=== PATIENT | male | born 1960 | race African-American/Black ===

== ENCOUNTER 2020-07-28 17:12 | Emergency (ER) | payer SELFPAY ==
--- NOTE | 2020-07-28 17:45 | ER Document Report ---
ED Medical Screen (RME) - General Chief Complaint: Chest Pain > 30 Stated Complaint: CHEST PAIN Time Seen by Provider: 07/28/20 17:36 Notes: Patient is a 60-year-old male with a history of diabetes and arthritis who presents emergency department with a chief complaint of chest heaviness and body aches. Patient states that his symptoms started few days ago. Patient reports slight shortness of breath. Patient states that he has not checked his sugar in a while. Patient states that this does not feel like his arthritis. Exam: Sinus rhythm on twelve-lead EKG. Patient is alert and oriented. Based off of the patient's complaints of body aches, the patient will be tested for COVID-19 and chest pain work-up ordered. I have greeted and performed a rapid initial assessment of this patient. A comprehensive ED assessment and evaluation of the patient, analysis of test results and completion of medical decision making process will be conducted by an additional ED providers. - Related Data Allergies/Adverse Reactions: No Known Allergies Allergy (Verified 07/28/20 17:43) Past Medical History - Social History Chew tobacco use (# tins/day): No Frequency of alcohol use: None Drug Abuse: None
[2020-07-28 19:15] LABS: ABSOLUTE BASOPHILS # (AUTO) 0.1 10^3/uL (0.0-0.2); ABSOLUTE EOSINOPHILS # (AUTO) 0.3 10^3/uL (0.0-0.6); ABSOLUTE LYMPHOCYTES (AUTO) 2.7 10^3/uL (0.5-4.7); ABSOLUTE MONOCYTES (AUTO) 0.5 10^3/uL (0.1-1.4); ABSOLUTE NEUT (AUTO) 3.7 10^3/uL (1.7-8.2); BASOPHILS % (AUTO) 1.1 % (0-2); EOSINOPHILS % (AUTO) 4.8 % (0-6); HEMATOCRIT 43.1 % (37.9-51.0); HEMOGLOBIN 14.7 g/dL (13.5-17.0); MEAN CORPUSCULAR HGB CONC 34.1 g/dL (32.0-36.0); MEAN CORPUSCULAR VOLUME 82 fl (80-97); MONOCYTES % (AUTO) 7.1 % (3-13); PLATELET COUNT 347 10^3/uL (150-450); RED BLOOD COUNT 5.25 10^6/uL (4.35-5.55); RED CELL DISTRIBUTION WIDTH 13.5 % (11.5-14.0); TOTAL CELLS COUNTED % (AUTO) 100 %; WHITE BLOOD COUNT 7.3 10^3/uL (4.0-10.5)
--- NOTE | 2020-07-28 19:20 | RADIOLOGY REPORT (SQ) ---
EXAM DESCRIPTION: CHEST SINGLE VIEW IMAGES COMPLETED DATE/TIME: 07/28/2020 7:09 pm REASON FOR STUDY: chest heaviness COMPARISON: None. EXAM PARAMETERS: NUMBER OF VIEWS: One view. TECHNIQUE: Single frontal radiographic view of the chest acquired. RADIATION DOSE: NA LIMITATIONS: None. FINDINGS: LUNGS AND PLEURA: No opacities, masses or pneumothorax. No pleural effusion. MEDIASTINUM AND HILAR STRUCTURES: No masses. Contour normal. HEART AND VASCULAR STRUCTURES: Heart normal in size. Normal vasculature. BONES: No acute findings. HARDWARE: None in the chest. OTHER: No other significant finding. IMPRESSION: NO ACUTE RADIOGRAPHIC FINDING IN THE CHEST. TECHNICAL DOCUMENTATION: JOB ID: [id number] 2010 [employer]- All Rights Reserved Reading location - IP/workstation name: [email or web address]
[2020-07-28 19:34] LABS: ALKALINE PHOSPHATASE 94 U/L (38-126); ANION GAP 8 (5-19); ASPARTATE AMINO TRANSFERASE 23 U/L (17-59); BILIRUBIN,DIRECT 0.3 mg/dL (0.0-0.4); BILIRUBIN,TOTAL 0.4 mg/dL (0.2-1.3); BLOOD UREA NITROGEN 13 mg/dL (7-20); CALCIUM 9.2 mg/dL (8.4-10.2); CARBON DIOXIDE 27 mmol/L (22-30); CHLORIDE 102 mmol/L (98-107); CREATINE KINASE 397 U/L (55-170); GLUCOSE 145 mg/dL (75-110); POTASSIUM 4.1 mmol/L (3.6-5.0)
[2020-07-28] MEDS ORDERED: KETOROLAC TROMETHAMINE INJ/PF 30 MG/1 ML SDV IV ONE (20:24)
--- NOTE | 2020-07-28 20:29 | ER Document Report ---
ED Cardiac - General Chief Complaint: Chest Pain > 30 Stated Complaint: CHEST PAIN Time Seen by Provider: 07/28/20 17:36 Notes: CHIEF COMPLAINT: Chest pain and generalized body ache for 3 days HPI: 60-year-old male who is a type II diabetic presenting for evaluation of left chest pain that hurts when he pushes on the chest wall hurts when he takes a deep breath in for 3 days with generalized body ache and slight cough. No shortness of breath. No abdominal pain nausea vomiting. Patient states that he has taken no medications for his symptoms. Patient states that he recently came from [place] was tested for COVID 2 months ago would like to be retested because he is concerned he has COVID. Patient indicates that the discomfort in the chest specifically worsens with palpation of the chest wall or movement ROS: See HPI - all other systems were reviewed and are otherwise negative Constitutional: no fever Eyes: no drainage, no blurred vision ENT: no runny nose, no sore throat Cardiovascular: Positive chest wall pain Resp: no SOB, no cough GI: no vomiting, no diarrhea, no abdominal pain : no dysuria Integumentary: no rash Allergy: no hives Musculoskeletal: Positive body ache Neurological: no numbness/tingling, no weakness MEDICATIONS: I agree with the patient medications as charted by the RN. ALLERGIES: I agree with the allergies as charted by the RN. PAST MEDICAL HISTORY/PAST SURGICAL HISTORY: Reviewed and agree as charted by RN. SOCIAL HISTORY: Reviewed and agree as charted by RN. FAMILY HISTORY: No significant familial comorbid conditions directly related to patient complaint EXAM: Reviewed vital signs as charted by RN. CONSTITUTIONAL: Alert and oriented and responds appropriately to questions. Well-appearing; well-nourished HEAD: Normocephalic; atraumatic EYES: PERRL; Conjunctivae clear, sclerae non-icteric ENT: normal nose; no rhinorrhea; moist mucous membranes; pharynx without lesions noted, no uvula edema or deviation, no tonsillar hypertrophy, phonation normal NECK: Supple without meningismus; non-tender; no cervical lymphadenopathy, no masses CARD: RRR; no murmurs, no clicks, no rubs, no gallops; symmetric distal pulses RESP: Normal chest excursion without splinting or tachypnea; breath sounds clear and equal bilaterally; no wheezes, no rhonchi, no rales, pulse oximetry 98% on room air not hypoxic. There is reproducible pain on palpation of the left anterior chest wall ABD/GI: Normal bowel sounds; non-distended; soft, non-tender, no rebound, no guarding; no palpable organomegaly or masses. BACK: The back appears normal and is non-tender to palpation, there is no CVA tenderness EXT: Normal ROM in all joints; non-tender to palpation; no cyanosis, no effusions, no edema SKIN: Normal color for age and race; warm; dry; good turgor; no acute lesions noted NEURO: Moves all extremities equally; Motor and sensory function intact PSYCH: The patient's mood and manner are appropriate. Grooming and personal hygiene are appropriate. MDM: 60-year-old diabetic male presenting for body ache and chest wall pain requesting COVID testing symptoms have been consistent for 3 days, initial screening labs ordered via triage process negative for acute findings. Patient's pain is completely reproducible to palpation I have lower suspicion for ACS. EKG normal sinus rhythm with a ventricular rate of 89. [place] 136, QT 360, interpreted by emergency department physician. Nonspecific T wave flattening is noted. Will cover test the patient and will be a person under investigation for COVID-19. Self quarantine at home. Will refer patient to PCP and to cardiology for outpatient follow-up - Related Data Allergies/Adverse Reactions: No Known Allergies Allergy (Verified 07/28/20 17:43) Past Medical History - Social History Smoking Status: Current Every Day Smoker Chew tobacco use (# tins/day): No Frequency of alcohol use: None Drug Abuse: None Family History: Reviewed & Not Pertinent Endocrine Medical History: Reports: Hx Diabetes Mellitus Type 2 Renal/ Medical History: Reports: Hx Kidney Stones Physical Exam - Vital signs Vitals: Temp Pulse Resp BP Pulse Ox 98.7 F 99 18 149/98 H 99 07/28/20 17:34 07/28/20 17:34 07/28/20 17:34 07/28/20 17:34 07/28/20 17:34 Course - Vital Signs Vital signs: Temp Pulse Resp BP Pulse Ox 98.7 F 99 18 149/98 H 99 07/28/20 17:34 07/28/20 17:34 07/28/20 17:34 07/28/20 17:34 07/28/20 18:00 - Laboratory Result Diagrams: 07/28/20 18:50 07/28/20 18:50 Laboratory results interpreted by me: 07/28/20 07/28/20 18:11 18:50 Sodium 136.6 L Glucose 145 H POC Glucose 144 H Creatine Kinase 397 H Discharge - Discharge Clinical Impression: Chest wall pain, Person under investigation for COVID-19 Condition: Stable Disposition: HOME, SELF-CARE Additional Instructions: Your screening lab work tonight did not show acute emergent abnormalities. Follow-up closely with both your primary care provider and with cardiology for further evaluation and treatment call for appointment. If you have worsening symptoms return for reevaluation. Take the Voltaren as prescribed. You are considered a person under investigation for COVID-19 at this time self quarantin e at home pending her test results which usually take 2 to 5 days. You should receive a call from the hospital about your results. Prescriptions: Diclofenac Sodium [Voltaren 50 Mg Tablet.] 50 mg PO BID #20 tablet.dr Referrals: TANIKA MCKINNON MD [ACTIVE PROVISIONAL STAFF] - Follow up as needed
[2020-07-28 21:29] VITALS: BP 159/89
--- NOTE | 2020-07-31 02:49 | EKG REPORT ---
SEVERITY:- BORDERLINE ECG - SINUS RHYTHM BORDERLINE T WAVE ABNORMALITIES : Confirmed by: Manuel Sibley MD 31-Jul-2020 02:49:00
== END 2020-07-28 21:15 | disposition home or self-care (01) ==
LOC: ER 17:12
DX: R07.89 Other chest pain (principal); R07.1 Chest pain on breathing; R05 Cough; E11.9 Type 2 diabetes mellitus without complications; F17.200 Nicotine dependence, unspecified, uncomplicated; Z20.828 Contact with and (suspected) exposure to other viral communicable diseases
CPT/HCPCS: 93005; 99284; 96374; 36415; 82962; 82550; 83735; 85025; 87635; 80053; 84484; 71045; 93010; J1885; C9803

== ENCOUNTER 2020-10-28 14:09 | Inpatient (IN) | payer SELFPAY ==
--- NOTE | 2020-10-28 14:45 | ER Document Report ---
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 Patient states that he was unable to hold the steering wheel while driving his car. Patient denies a history of cardiovascular complaints. Notes that his speech feels slurred. Denies drooling. Denies other complaints. - Related Data Allergies/Adverse Reactions: No Known Allergies Allergy (Verified 07/28/20 17:43) Past Medical History Endocrine Medical History: Reports: Hx Diabetes Mellitus Type 2 Renal/ Medical History: Reports: Hx Kidney Stones Physical Exam - Vital signs Vitals: Temp Pulse Resp BP Pulse Ox 98.0 F 86 16 154/92 H 95 10/28/20 14:26 10/28/20 14:26 10/28/20 14:26 10/28/20 14:26 10/28/20 14:26 General: No acute distress. Alert and oriented x3. Sitting comfortably in a stretcher. Skin: No jaundice, pallor, petechiae, or rashes. Warm and dry. HEENT: Normocephalic, atraumatic. Pupils are equal round reactive to light and accommodation. Extraocular movements are intact. TMs without erythema or bulging. Canals are clear. Nares patent without any discharge. Teeth in good condition. Pharynx without erythema, edema, or exudates. Mucous membranes moist. No tonsillar enlargement. Uvula is midline. Airway is patent. Neck: Supple with no lymphadenopathy. Full range of motion. Heart: Regular rate and rhythm. S1,S2. No murmurs, rubs, or gallops. Lungs: Clear to auscultation bilaterally. No wheezes, rhonchi, rales. Equal chest expansion. No retractions. Abdomen: Soft, nontender to palpation, nondistended. Positive bowel sounds in all 4 quadrants. No masses. No CVA tenderness bilaterally. Back: No midline spinal TTP. No paraspinous muscular TTP. Neuro: GCS 15. Positive pronator drift to the right side. Minor facial droop to the right side. Slowed Speech is noted Psych: Mood and affect appropriate. Course - Vital Signs Vital signs: Temp Pulse Resp BP Pulse Ox 98.0 F 86 16 154/92 H 95 10/28/20 14:26 10/28/20 14:26 10/28/20 14:26 10/28/20 14:26 10/28/20 14:26
--- NOTE | 2020-10-28 15:00 | EKG REPORT ---
SEVERITY:- ABNORMAL ECG - SINUS RHYTHM LEFT VENTRICULAR HYPERTROPHY BORDERLINE T ABNORMALITIES, INFERIOR LEADS : Confirmed by: Pb Isabel 28-Oct-2020 14:59:53
--- NOTE | 2020-10-28 15:02 | RADIOLOGY REPORT (SQ) ---
EXAM DESCRIPTION: CT HEAD WITHOUT IMAGES COMPLETED DATE/TIME: 10/28/2020 2:53 pm REASON FOR STUDY: cva COMPARISON: None. TECHNIQUE: Axial images acquired through the brain without intravenous contrast. Images reviewed wi th bone, brain and subdural windows. Additional sagittal and coronal reconstructions were generated. Images stored on PACS. All CT scanners at this facility use dose modulation, iterative reconstruction, and/or weight based d osing when appropriate to reduce radiation dose to as low as reasonably achievable (ALARA). [facility]: Dose Right [facility]: CareDose [facility]: Dose Right [facility]: Teradose 4D [facility]: AVOS Cloud RADIATION DOSE: CT Rad equipment meets quality standard of care and radiation dose reduction techniq ues were employed. CTDIvol: 53.2 mGy. DLP: 937 mGy-cm. mGy. LIMITATIONS: None. FINDINGS: VENTRICLES: Normal size and contour. CEREBRUM: No masses. No hemorrhage. No midline shift. No evidence for acute infarction. Normal gra y/white matter differentiation. No areas of low density in the white matter. CEREBELLUM: No masses. No hemorrhage. No alteration of density. No evidence for acute infarction. EXTRAAXIAL SPACES: No fluid collections. No masses. ORBITS AND GLOBE: No intra- or extraconal masses. Normal contour of globe without masses. CALVARIUM: No fracture. PARANASAL SINUSES: Maxillary sinus disease and mucous retention cysts. SOFT TISSUES: No mass or hematoma. OTHER: No other significant finding. IMPRESSION: NO ACUTE INTRACRANIAL IMAGING FINDINGS. EVIDENCE OF ACUTE STROKE: NO. COMMENT: Quality ID # [id number]: Final reports with documentation of one or more dose reduction techniques (e.g., Automated exposure control, adjustment of the mA and/or kV according to patient size, use of iterative reconstruction technique) TECHNICAL DOCUMENTATION: JOB ID: [id number] 2010 [employer]- All Rights Reserved Reading location - IP/workstation name: [email or web address]
--- NOTE | 2020-10-28 15:03 | RADIOLOGY REPORT (SQ) ---
EXAM DESCRIPTION: CHEST SINGLE VIEW IMAGES COMPLETED DATE/TIME: 10/28/2020 2:55 pm REASON FOR STUDY: cva COMPARISON: Chest radiographs 07/28/2020. EXAM PARAMETERS: NUMBER OF VIEWS: One view. TECHNIQUE: Single frontal radiographic view of the chest acquired. RADIATION DOSE: NA LIMITATIONS: None. FINDINGS: LUNGS AND PLEURA: No opacities, masses or pneumothorax. No pleural effusion. MEDIASTINUM AND HILAR STRUCTURES: No masses. Contour normal. HEART AND VASCULAR STRUCTURES: Heart normal in size. Normal vasculature. BONES: No acute findings. HARDWARE: None in the chest. OTHER: No other significant finding. IMPRESSION: NO ACUTE RADIOGRAPHIC FINDING IN THE CHEST. TECHNICAL DOCUMENTATION: JOB ID: [id number] 2010 [employer]- All Rights Reserved Reading location - IP/workstation name: [email or web address]
[2020-10-28 16:10] LABS: ABSOLUTE BASOPHILS # (AUTO) 0.1 10^3/uL (0.0-0.2); ABSOLUTE EOSINOPHILS # (AUTO) 0.3 10^3/uL (0.0-0.6); ABSOLUTE LYMPHOCYTES (AUTO) 2.9 10^3/uL (0.5-4.7); ABSOLUTE MONOCYTES (AUTO) 0.5 10^3/uL (0.1-1.4); ABSOLUTE NEUT (AUTO) 2.5 10^3/uL (1.7-8.2); BASOPHILS % (AUTO) 0.9 % (0-2); EOSINOPHILS % (AUTO) 5.5 % (0-6); HEMATOCRIT 40.5 % (37.9-51.0); HEMOGLOBIN 13.8 g/dL (13.5-17.0); INTERNATIONAL RATION (INR) 0.96; LYMPHOCYTES % (AUTO) 45.6 % (13-45); MEAN CORPUSCULAR HEMOGLOBIN 27.7 pg (27.0-33.4); MEAN CORPUSCULAR VOLUME 82 fl (80-97); MONOCYTES % (AUTO) 8.8 % (3-13); PLATELET COUNT 313 10^3/uL (150-450); RED BLOOD COUNT 4.97 10^6/uL (4.35-5.55); RED CELL DISTRIBUTION WIDTH 13.3 % (11.5-14.0); SEGMENTED NEUTROPHILS % (AUTO) 39.2 % (42-78); TOTAL CELLS COUNTED % (AUTO) 100 %; WHITE BLOOD COUNT 6.3 10^3/uL (4.0-10.5)
[2020-10-28 16:11] LABS: PARTIAL THROMBOPLASTIN TIME 30.6 SEC (23.5-35.8)
[2020-10-28 16:29] LABS: ALBUMIN 4.1 g/dL (3.5-5.0); ALKALINE PHOSPHATASE 123 U/L (38-126); ANION GAP 9 (5-19); ASPARTATE AMINO TRANSFERASE 27 U/L (17-59); BILIRUBIN,DIRECT 0.1 mg/dL (0.0-0.4); BILIRUBIN,TOTAL 0.8 mg/dL (0.2-1.3); BLOOD UREA NITROGEN 14 mg/dL (7-20); CALCIUM 9.7 mg/dL (8.4-10.2); CARBON DIOXIDE 26 mmol/L (22-30); CHLORIDE 101 mmol/L (98-107); CREATINE KINASE 629 U/L (55-170); GLUCOSE 185 mg/dL (75-110); POTASSIUM 4.2 mmol/L (3.6-5.0); TOTAL PROTEIN 7.3 g/dL (6.3-8.2)
[2020-10-28] MEDS ORDERED: NORMAL SALINE 500 ML IV ONE (16:32)
[2020-10-28 16:38] LABS: CREATINE KINASE MB 3.49 ng/mL (<4.55); TROPONIN I 0.014 ng/mL
--- NOTE | 2020-10-28 16:45 | ER Document Report ---
ED General - General Chief Complaint: S/S of Possible Stroke Stated Complaint: CHEST PRESSURE RIGHT SIDE WEAKNESS Time Seen by Provider: 10/28/20 14:32 - HPI Notes: Patient is a 60-year-old male with a past medical history of high blood pressure and diabetes who presents with stroke like symptoms. Patient states he began to feel off yesterday. He states he had a mild headache and felt some tingling in his arms. Today, he was driving and felt like his right arm was acting differently. He also states that he feels that his right leg is weak. He thinks he has been talking with a slurred speech. Last known well was yesterday around 8 PM. Nothing makes it better or worse. He denies any chest pain or shortness of breath. No recent illnesses. Patient moved here from [place] 3 months ago. He has been living in his car. He does have family in the area. Patient states that he ran out of his medicines 3 days ago and has not taken anything for his blood pressure or diabetes. He is unsure what his blood pressure dose is. Patient does not take any blood thinners. He states he takes a daily aspirin. - Related Data Allergies/Adverse Reactions: No Known Allergies Allergy (Verified 07/28/20 17:43) Past Medical History - General Information source: Patient - Social History Smoking Status: Current Every Day Smoker Chew tobacco use (# tins/day): No Frequency of alcohol use: None Drug Abuse: None Family History: Reviewed & Not Pertinent Endocrine Medical History: Reports: Hx Diabetes Mellitus Type 2 Renal/ Medical History: Reports: Hx Kidney Stones Review of Systems - Review of Systems Notes: CONSTITUTIONAL: No fever, fatigue or weight loss. SKIN: No rash. HENT: No congestion, ear pain, or sore throat. EYES: No recent vision problems or eye pain. CARDIOVASCULAR: No chest pain or edema. RESPIRATORY: No cough, shortness of breath, congestion, or wheezing. GASTROINTESTINAL: No abdominal pain, nausea, vomiting, bloody stools or diarrhea. MUSCULOSKELETAL: No joint pain or swelling. NEUROLOGIC: No seizures. Positive for weakness to his right arm and right leg. Positive for subjective slurred speech. HEMATOLOGIC: No unusual bruising or bleeding. PSYCHIATRIC: No depression or anxiety. Physical Exam - Vital signs Vitals: Temp Pulse Resp BP Pulse Ox 98.0 F 86 16 154/92 H 95 10/28/20 14:26 12/12/20 14:26 10/28/20 14:26 10/28/20 14:26 10/28/20 14:26 - General General appearance: Appears well Notes: GENERAL: No acute distress, non-toxic appearance. HEAD: Normal with no signs of head trauma. EYES: EOMI, conjunctiva normal, no discharge. EARS: Hearing grossly intact. NOSE: Normal. NECK: Normal range of motion, no tenderness, supple, no lymphadenopathy, No adenopathy, no JVD. CHEST: Clear breath sounds bilaterally. No wheezes, rales, or rhonchi. CARDIAC: Regular rate and rhythm. S1 and S2, without murmurs, gallops, or rubs. VASCULAR: No Edema. ABDOMEN: Normal and soft with no tenderness, no masses or pulsatile masses. GENITOURINARY: Normal, No tenderness MUSCULOSKELETAL: Good range of motion of all major joints. Extremities without clubbing, cyanosis or edema. NEUROLOGICAL: Alert and oriented x 3. Sensation is intact bilaterally in upper and lower extremities. Strength is 5 out of 5 bilaterally. There is noted some right pronator drift on his upper extremity. Patient speech appears normal. No aphasia. No slurred speech appreciated. NIH is 1. PSYCHIATRIC: Normal Affect, judgement and mood. SKIN: Normal appearance with no rashes or lesions. Course - Re-evaluation Re-evalutation: 10/28/20 16:48 Patient is using both of his arms normally on the cell phone. However, when I check pronator drift he does have a slight drift on the right upper extremity. CT scan and x-ray are negative. Lab work was reviewed. His CK is slightly high . He was given a small bolus of fluids. Recommend admission for MRI and further work-up. Patient is not a TPA candidate as his symptoms onset was yesterday evening and he has a low NIH. 10/29/20 01:29 - Vital Signs Vital signs: Temp Pulse Resp BP Pulse Ox 98.0 F 92 18 103/89 H 100 10/28/20 14:26 10/28/20 20:05 10/28/20 20:05 10/28/20 20:00 10/28/20 20:05 - Laboratory Results Result Diagrams: 10/28/20 15:37 10/28/20 15:37 Laboratory Results Interpreted: 10/28/20 10/28/20 15:37 15:37 Lymph % (Auto) 45.6 H Seg Neutrophils % 39.2 L Sodium 136.1 L Glucose 185 H Creatine Kinase 629 H Critical Laboratory Results Reviewed: No Critical Results - Radiology Results Critical Radiology Results Reviewed: No Critical Results - EKG Interpretation by Me EKG shows normal: Sinus rhythm Rate: Normal Rhythm: NSR When compared to previous EKG there are: No significant change Additional EKG results interpreted by me: 10/28/20 16:47 Sinus rhythm at a rate of 82. QTc 444. No acute ST changes. EKG is similar to previous. Discharge - Discharge Clinical Impression: Stroke-like symptoms Condition: Stable Disposition: ADMITTED OBSERVATION Admitting Provider: Saroj (Hospitalist) Unit Admitted: [facility]
--- NOTE | 2020-10-28 16:49 | ER Document Report ---
ED NIH Stroke Scale - NIH Stroke Scale When completed:: Protocol *: 1. NIH scale should be completed with appropriate accompanying assessment tools. *: 2. The NIH should reflect what the patient is capable of doing and should not be coached by the clinician. 1a. Level of Consciousness: 0=Alert;keenly responsive -: 1=Drowsy -: 2=Obtunded -: 3=Coma/unresponsive or reflex to noxious stimuli. 1a. Responses: 0 1b. Orientation Questions: a. What month is it? -: b. How old are you? -: 0=Answers both questions correctly. -: 1=Answers one question correctly or patient is intubated or has orotracheal trauma. -: 2=Answers neither question correctly. 1b. Responses: 0 1c. Response to commands: a. Open and close eyes? -: b. Foreclosure Specialist and release hand? -: Credit is given despite weakness. Demonstration of task is permitted. Substitute command if hands cannot be used. -: 0=Performs both tasks correctly -: 1=Performs one task correctly -: 2=Performs neither task correctly 1c. Responses: 0 2. Gaze: Establish eye contact and instruct patient to "Follow my finger" -: 0=Normal -: 1=Partial gaze palsy. Gaze is abnormal in one or both eyes, but where forced deviation or total gaze paresis is not present. -: 2=Forced deviation or total gaze paresis. 2. Responses: 0 3. Visual Parry: Sees fingers in all four quadrants. -: 0=No visual loss. -: 1=Partial hemianopsia. -: 2=Complete hemianopsia. -: 3=Bilateral hemianopsia (including Cortical blindness) 3. Responses: 0 4. Facial Movement: Instruct patient to: -: a. Show me your teeth -: b. Raise your eyebrows -: c. Close your eyes -: d. Smile -: 0=Normal symmetrical movement -: 1=Minor paralysis (flattened nasolabial fold, asymmetry on smiling). -: 2=Partial paralysis (total or near total paralysis of lower face). -: 3=Complete paralysis of upper and lower face 4. Responses: 0 5. Motor functions (left arm): Alternate sides and extend each arm with palms down (90 degrees if sitting or 45 degrees for supine). -: 0=No drift;limb holds for full 10 seconds. -: 1=Drift; limb holds but drifts down before full 10 seconds, but does not hit bed. -: 2=Some effort against gravity; limb cannot get to or maintain position. -: 3=No effort against gravity; limb falls. -: 4=No movement. -: UN=Amputation, joint fusion, explain in comments. 5. Responses (left arm): 0 5. Motor Functions (right arm): Alternate sides and extend each arm with palms down (90 degrees if sitting or 45 degrees for supine). -: 0=No drift;limb holds for full 10 seconds. -: 1=Drift; limb holds but drifts down before full 10 seconds, but does not hit bed. -: 2=Some effort against gravity; limb cannot get to or maintain position. -: 3=No effort against gravity; limb falls. -: 4=No movement. -: UN=Amputation, joint fusion, explain in comments. 5. Responses (right arm): 1 6. Motor Functions (left leg): With patient lying supine, alternate sides and extend each leg (30 degrees always while supine). -: 0=No drift, leg holds position for full 5 seconds -: 1=Drift; leg falls before full 5 seconds but does not hit bed. -: 2=Some effort against gravity, leg falls to bed but some effort against gravity. -: 3=No effort against gravity, leg falls to bed immediately. -: 4=No movement. -: UN=Amputation, joint fusion; explain in comments. 6. Responses (left leg): 0 6. Motor Functions (right leg): With patient lying supine, alternate sides and extend each leg (30 degrees always while supine). -: 0=No drift, leg holds position for full 5 seconds -: 1=Drift; leg falls before full 5 seconds but does not hit bed. -: 2=Some effort against gravity, leg falls to bed but some effort against gravity. -: 3=No effort against gravity, leg falls to bed immediately. -: 4=No movement. -: UN=Amputation, joint fusion; explain in comments. 6. Responses (right leg): 0 7. Limb Ataxia: With eyes open instruct patient to: -: a. "Touch your finger to your nose". -: b. "Touch your heel to your mendez" -: 0=Absent -: 1=Present in one limb. -: 2=Present in two limbs. -: UN=Amputation or joint fusion; explain in comments. 7. Responses: 0 8. Sensory: Test sensation using pinprick or noxious stimuli. Test as many body parts as possible. -: 0=Normal;no sensory loss -: 1=Mile to moderate sensory loss (patient feels pin prick but is less sharp on affected side). -: 2=Severe or total sensory loss. 8. Responses: 0 9. Best Language: Instruct patient to: -: a. "Describe what you see in this picture." -: b. "Name the items in this picture." -: c. "Read these sentences." -: 0=No aphasia, normal -: 1=Mild to moderate aphasia. -: 2=Severe aphasia -: 3=Mute, global aphasia, no usable speech or auditory comprehension. 9. Responses: 0 10. Articulation, Dysarthia: Instruct patient to: -: "Read these words" or "Repeat these words" -: 0=Normal -: 1=Mild to moderate; patient may slur some words but can be understood without difficulty. -: 2=Severe; patients speech so slurred as to be unintelligible in the absence of dysphasia. -: UN=Intubated or other physical barrier, explain in comments. 10. Responses: 0 11. Extinction or inattention: 0=No abnormality -: 1= Visual, tactile, auditory, spatial, or personal inattention or extinction to bilateral simulation in one or the sensory modalities. -: 2=Profound ceci-inattention or ceci-inattention to more than one modality; does not recognize own hand. 11. Responses: 0 Total Score: 1
[2020-10-28] MEDS ORDERED: NORMAL SALINE 1000 ML 1,000 ML IV PRN (17:42)
[2020-10-28] MEDS ORDERED: ONDANSETRON HCL INJ/PF 4 MG/2 ML SDV IV PRN (17:42)
[2020-10-28] MEDS ORDERED: IPRATROPIUM/ALBUTEROL 0.5-2.5 MG/3 ML AMPUL NEB PRN (17:42)
[2020-10-28] MEDS ORDERED: GLUCAGON,HUMAN RECOMB 1 MG INJ IM PRN (18:00)
[2020-10-28] MEDS ORDERED: DEXTROSE 50%-WATER 25 GM/50 ML DISP.SYRIN IV PRN ×2 (18:00)
[2020-10-28] MEDS ORDERED: DEXTROSE 40% GEL 15 GM TUBE PO PRN ×2 (18:00)
[2020-10-28] MEDS: ASPIRIN 81 MG TABLET, ENT COATED PO SCH (18:13)
--- NOTE | 2020-10-28 18:30 | RADIOLOGY REPORT (SQ) ---
EXAM DESCRIPTION: CT CERVICAL SPINE WITHOUT IMAGES COMPLETED DATE/TIME: 10/28/2020 6:18 pm REASON FOR STUDY: neck pain radiating to arms COMPARISON: None. TECHNIQUE: Axial images acquired through the cervical spine without intravenous contrast. Images re viewed with lung, soft tissue and bone windows. Reconstructed coronal and sagittal MPR images review ed. Images stored on PACS. All CT scanners at this facility use dose modulation, iterative reconstruction, and/or weight based d osing when appropriate to reduce radiation dose to as low as reasonably achievable (ALARA). [facility]: Dose Right [facility]: CareDose [facility]: Dose Right [facility]: Teradose 4D [facility]: Smart Causata RADIATION DOSE: CT Rad equipment meets quality standard of care and radiation dose reduction techniq ues were employed. CTDIvol: 20.3 mGy. DLP: 489 mGy-cm. mGy. LIMITATIONS: None. FINDINGS: ALIGNMENT: Anatomic. MINERALIZATION: Normal. VERTEBRAL BODIES: No fractures or dislocation. DISCS: Generally maintained. Mild spondylosis with disc osteophyte complexes C5-6 and C6-7. Noncrit ical foraminal narrowing at these levels. FACETS, LATERAL MASSES, POSTERIOR ELEMENTS: No fractures. No dislocation. No acute findings. HARDWARE: None in the spine. VISUALIZED RIBS: No fractures. LUNG APICES AND SOFT TISSUES: No significant or acute findings. OTHER: No other significant finding. IMPRESSION: Mild spondylosis. No acute or suspicious cervical spine abnormality. TECHNICAL DOCUMENTATION: JOB ID: [id number] Quality ID # [id number]: Final reports with documentation of one or more dose reduction techniques (e.g., Au tomated exposure control, adjustment of the mA and/or kV according to patient size, use of iterative reconstruction technique) 2010 [employer]- All Rights Reserved Reading location - IP/workstation name: [email or web address]
--- NOTE | 2020-10-28 18:33 | PDOC H&P ---
History of Present Illness Admission Date/PCP: 10/28/20 17:25 DELMER CLEMENTS MD Patient complains of: Right arm weakness, slurring of speech. History of Present Illness: RAYA MCKINNON is a 60 year old male, past medical history of prior stroke last year affecting the left side of his body no residual weakness, hypertension, hyperlipidemia, type 2 diabetes, who came in the ED today due to right arm weakness and slurring of speech. His symptoms started last night at around 10 PM when he experience pain on the back of his head that radiated to both arms. When he woke up this morning he said he felt terrible and unsteady on his legs specifically the right side. While he was driving today he noticed that his right arm jerked suddenly and that he was slurring his speech. Patient then decided to come to the ED. According to the patient he has not had any of his medication for 2 days. He also stated that he living in his car since June. In the ED blood pressure was 154/92,, heart rate of 85, respiratory rate 16, afebrile, O2 sat of 95% on room air. BC was normal, CMP was normal. CT head negative. NIH stroke scale was 3.Hospitalist service was called to admit the patient for TIA work up Past Medical History Cardiac Medical History: Reports: Coronary Artery Disease, Hyperlipidema, Hypertension EENT Medical History: Reports: None Neurological Medical History: Reports: Ischemic CVA Endocrine Medical History: Reports: Diabetes Mellitus Type 2 Renal/ Medical History: Reports: Nephrolithiasis Malignancy Medical History: Reports: None GI Medical History: Reports: None Musculoskeltal Medical History: Reports: None, Other - Chronic back pain Skin Medical History: Reports: None Psychiatric Medical History: Reports: Tobacco Dependency Traumatic Medical History: Reports: None Hematology: Reports: None Past Surgical History Past Surgical History: Reports: None Social History Information Source: Patient Smoking Status: Current Every Day Smoker Cigarettes Packs Per Day: 1 Electronic Cigarette use?: No Number of Years Smokin Frequency of Alcohol Use: Rare Hx Recreational Drug Use: No Drugs: None - Advance Directive Resuscitation Status: Full Code Surrogate healthcare decision maker:: Patient stated that he wants to be FULL CODE and named her ex Amy as his HCPOA. He also named frank escobar as the 2nd HCPOA. Family History Family History: DM, Hypertension Parental Family History Reviewed: Yes Children Family History Reviewed: Yes Sibling(s) Family History Reviewed.: Yes Medication/Allergy Home Medications: Diclofenac Sodium [Voltaren 50 Mg Tablet.] 50 mg PO BID #20 tablet. 07/28/20 Allergies/Adverse Reactions: No Known Allergies Allergy (Verified 07/28/20 17:43) Review of Systems Constitutional: PRESENT: fatigue, weakness. ABSENT: chills, fever(s), night sweats Eyes: ABSENT: visual disturbances Ears: ABSENT: hearing changes Nose, Mouth, and Throat: ABSENT: mouth pain, sore throat Cardiovascular: ABSENT: chest pain, dyspnea on exertion, edema, orthropnea, palpitations Respiratory: ABSENT: dyspnea Gastrointestinal: ABSENT: diarrhea, hematemesis Genitourinary: ABSENT: dysuria Musculoskeletal: PRESENT: back pain. ABSENT: joint swelling Neurological: PRESENT: abnormal movements, abnormal speech, focal weakness, frequent falls, paresthesias. ABSENT: confusion, convulsions Physical Exam Vital Signs: Temp Pulse Resp BP Pulse Ox 98.0 F 85 16 166/102 H 98 10/28/20 14:26 10/28/20 15:47 10/28/20 15:47 10/28/20 15:47 10/28/20 15:47 Intake & Output 10/27/20 10/28/20 10/29/20 06:59 06:59 06:59 Weight 94.1 kg General appearance: PRESENT: no acute distress, cooperative Head exam: PRESENT: atraumatic Eye exam: PRESENT: EOMI, PERRLA Ear exam: PRESENT: normal external ear exam Mouth exam: PRESENT: moist Neck exam: PRESENT: full ROM Respiratory exam: PRESENT: clear to auscultation dayday, symmetrical, unlabored Cardiovascular exam: PRESENT: RRR, +S1, +S2 Pulses: PRESENT: +2 pedal pulses bilateral GI/Abdominal exam: PRESENT: normal bowel sounds, soft. ABSENT: rebound, tenderness Extremities exam: PRESENT: full ROM Musculoskeletal exam: PRESENT: full ROM Neurological exam: PRESENT: alert, awake, oriented to person, oriented to place, oriented to time, oriented to situation, reflexes normal, abnormal gait, CN II- XII grossly intact, motor sensory deficit, aphasic - Very mild expressive a phasia Psychiatric exam: PRESENT: normal mood Skin exam: PRESENT: normal color Results Laboratory Results: 10/28/20 15:37 12/12/20 15:37 10/28/20 10/28/20 15:37 15:37 WBC 6.3 RBC 4.97 Hgb 13.8 Hct 40.5 MCV 82 MCH 27.7 MCHC 34.0 RDW 13.3 Plt Count 313 Seg Neutrophils % 39.2 L Sodium 136.1 L Potassium 4.2 Chloride 101 Carbon Dioxide 26 Anion Gap 9 BUN 14 Creatinine 1.03 Est GFR ( Amer) > 60 Glucose 185 H Calcium 9.7 Total Bilirubin 0.8 AST 27 Alkaline Phosphatase 123 Total Protein 7.3 Albumin 4.1 10/28/20 10/28/20 15:37 15:37 Creatine Kinase 629 H CK-MB (CK-2) 3.49 Troponin I 0.014 Impressions: Chest X-Ray 10/28/20 14:40 IMPRESSION: NO ACUTE RADIOGRAPHIC FINDING IN THE CHEST. Head CT 10/28/20 14:40 IMPRESSION: NO ACUTE INTRACRANIAL IMAGING FINDINGS. EVIDENCE OF ACUTE STROKE: NO. Assessment and Plan - Diagnosis (1) TIA (transient ischemic attack) Is this a current diagnosis for this admission?: Yes Plan: - Came in due to right, arm weakness, slurred speech and unsteady gait - Symptom started 10 pm last night therefor he is out of the tPA window - NIHS 3 so this excludes him from tPA too - hx of previous stroke affected left side of his body no residual deficit - +ve mild dysarthria, +ve romberg but strength is otherwise intact - CT head negative - EKG sinus rhythm - BG normal - Stroke order set used - started on aspirin and high dose lipitor - tele monitor - echo w/ bubble and carotid artery US - would do Permissive Hypertension 24-48 hr and not treat his BP unless systolic is >220. If anti HTN is needed please avoid using hydralazine and clonidine - speech, PT/OT eval (2) HTN (hypertension) Qualifiers: Hypertension type: essential hypertension Qualified Code(s): I10 - Moises al (primary) hypertension Is this a current diagnosis for this admission?: Yes Plan: - BP 166/102 - permissive HTN for 24-48 hours. Would not treat unless systolic BP >220 - will resume lisinopril once out of this period (3) HLD (hyperlipidemia) Qualifiers: Hyperlipidemia type: unspecified Qualified Code(s): E78.5 - Hyperlipidemia, unspecified Is this a current diagnosis for this admission?: Yes Plan: - will chekc lipid panel - started on high dose statin (4) Type 2 diabetes mellitus Qualifiers: Diabetes mellitus supervisor intermediates insulin use: without supervisor intermediates use Is this a current diagnosis for this admission?: Yes Plan: - On metformin and glimeperide - will hold oral DM meds - [facility] - [facility] - hypoglycemia protocol - awaiting A1C (5) Hx of stroke without residual deficits Is this a current diagnosis for this admission?: Yes Plan: - CVA infarct lst year 2018 affecting Left side of his body - no residual deficit - Time Time Spent with patient: 25-34 minutes Smoking Cessation Education: 3 to 10 minutes Medications reviewed and adjusted accordingly: Yes Anticipated Discharge Disposition: Home, Self Care Anticipated Discharge Timeframe: TBD
[2020-10-28] MEDS: ATORVASTATIN CALCIUM 80 MG TABLET PO SCH (21:14)
[2020-10-28] MEDS: INSULIN LISPRO 100 UNIT/ML 3 ML VIAL SUBCUT SCH (22:22)
[2020-10-29 06:12] LABS: ABSOLUTE EOSINOPHILS # (AUTO) 0.4 10^3/uL (0.0-0.6); ABSOLUTE LYMPHOCYTES (AUTO) 2.6 10^3/uL (0.5-4.7); ABSOLUTE MONOCYTES (AUTO) 0.5 10^3/uL (0.1-1.4); ABSOLUTE NEUT (AUTO) 2.1 10^3/uL (1.7-8.2); BASOPHILS % (AUTO) 0.8 % (0-2); EOSINOPHILS % (AUTO) 6.7 % (0-6); HEMATOCRIT 38.6 % (37.9-51.0); HEMOGLOBIN 13.1 g/dL (13.5-17.0); MEAN CORPUSCULAR HEMOGLOBIN 27.6 pg (27.0-33.4); MEAN CORPUSCULAR VOLUME 81 fl (80-97); MONOCYTES % (AUTO) 8.3 % (3-13); PLATELET COUNT 299 10^3/uL (150-450); RED BLOOD COUNT 4.76 10^6/uL (4.35-5.55); RED CELL DISTRIBUTION WIDTH 13.6 % (11.5-14.0); SEGMENTED NEUTROPHILS % (AUTO) 37.2 % (42-78); TOTAL CELLS COUNTED % (AUTO) 100 %; WHITE BLOOD COUNT 5.5 10^3/uL (4.0-10.5)
[2020-10-29 06:26] LABS: ALBUMIN 3.5 g/dL (3.5-5.0); ALKALINE PHOSPHATASE 109 U/L (38-126); ANION GAP 5 (5-19); ASPARTATE AMINO TRANSFERASE 23 U/L (17-59); BILIRUBIN,DIRECT 0.1 mg/dL (0.0-0.4); BILIRUBIN,TOTAL 0.7 mg/dL (0.2-1.3); BLOOD UREA NITROGEN 13 mg/dL (7-20); CALCIUM 9.2 mg/dL (8.4-10.2); CARBON DIOXIDE 27 mmol/L (22-30); CHLORIDE 104 mmol/L (98-107); CHOLESTEROL 205.53 mg/dL (0-200); GLUCOSE 167 mg/dL (75-110); POTASSIUM 4.3 mmol/L (3.6-5.0); TOTAL PROTEIN 6.6 g/dL (6.3-8.2); TRIGLYCERIDES 163 mg/dL (<150)
[2020-10-29 06:27] LABS: INTERNATIONAL RATION (INR) 0.95; PROTHROMBIN TIME 12.9 SEC (11.4-15.4)
[2020-10-29 06:37] LABS: DIRECT LDL 156 mg/dL (<100)
[2020-10-29 06:47] LABS: VLDL CHOLESTEROL 32.6 mg/dL (10-31)
[2020-10-29] MEDS: ASPIRIN 81 MG TABLET, ENT COATED PO SCH (10:09)
[2020-10-29] MEDS: ENOXAPARIN SODIUM INJ 40 MG/0.4 ML DISP.SYRIN SUBCUT SCH (10:09)
[2020-10-29] MEDS: INSULIN LISPRO 100 UNIT/ML 3 ML VIAL SUBCUT SCH ×4 (10:10→22:39)
--- NOTE | 2020-10-29 11:20 | RADIOLOGY REPORT (SQ) ---
EXAM DESCRIPTION: MRI HEAD WITHOUT IMAGES COMPLETED DATE/TIME: 10/29/2020 11:06 am REASON FOR STUDY: tia COMPARISON: CT 10/28/2020. TECHNIQUE: Multiplanar imaging includes non-contrasted T1, T2, FLAIR, and diffusion with ADC map seq uences. Images stored on PACS. LIMITATIONS: None. FINDINGS: ANATOMY: No anomalies. Normal vascular flow voids. Pituitary fossa normal. CSF SPACES: Normal in size and contour. No hemorrhage. CEREBRUM: Minimal spotty FLAIR hyperintensities consistent with small vessel vasculopathy. POSTERIOR FOSSA: No signal alteration. No hemorrhage. No edema, masses or mass effect. Internal tyler tory canals, cerebello-pontine angles, mastoids normal. DIFFUSION IMAGING: Focal restricted diffusion in the left basal ganglia in the posterior limb of the internal capsule. Consistent with a recent lacunar infarct. No territorial infarct detected. ORBITS: No masses. Globes normal. PARANASAL SINUSES: No fluid levels. Mucosa normal. OTHER: No other significant finding. IMPRESSION: 1. Recent left lacunar infarct in the posterior limb of internal capsule. No acute territorial infar ct. Mild small vessel disease otherwise as above. EVIDENCE OF ACUTE STROKE: NO. TECHNICAL DOCUMENTATION: JOB ID: [id number] 2010 [employer]- All Rights Reserved Reading location - IP/workstation name: [email or web address]
--- NOTE | 2020-10-29 13:02 | PDOC PROGRESS REPORT ---
Subjective Date:: 10/29/20 Subjective:: RAYA MCKINNON is a 60 year old male, past medical history of prior stroke l ast year affecting the left side of his body no residual weakness, hypertension, hyperlipidemia, type 2 diabetes, who came in the ED today due to right arm weakness and slurring of speech. His symptoms started last night at around 10 PM when he experience pain on the back of his head that radiated to both arms. When he woke up this morning he said he felt terrible and unsteady on his legs specifically the right side. While he was driving today he noticed that his right arm jerked suddenly and that he was slurring his speech. Patient then decided to come to the ED. According to the patient he has not had any of his medication for 2 days. He also stated that he living in his car since June. In the ED blood pressure was 154/92,, heart rate of 85, respiratory rate 16, afebrile, O2 sat of 95% on room air. BC was normal, CMP was normal. CT head negative. NIH stroke scale was 3.Hospitalist service was called to admit the patient for TIA work up. D2 of hospital stay 10/29/20 Patient was seen and examined at bedside. He does not report any new neurologic deficit and reports no worsening of the previously noted deficits. MRI brain showed recent left lacunar infarct in the posterior limb of internal capsule. No acute territorial infarct. Mild small vessel disease otherwise. Still waiting for echo and carotid artery US. PT assessed him. He will likely need acute rehab. He also expressed that "I don't want to be here anymore". I assumed he wanted to sign out AMA but then he said " I don't want to be on this earth anymore". He denied any concrete plan of suicide and he has not attempted before. He later took it back and said he was just frustrated that he had another stroke and that no one from his family have visited him. He looked more frustrated than depressed in my assessment. Reason For Visit: TRANSIENT ISCHEMIC INFARCT Physical Exam Vital Signs: Temp Pulse Resp BP Pulse Ox 97.5 F 80 16 157/85 H 99 10/29/20 11:36 10/29/20 12:00 10/29/20 12:00 10/29/20 12:00 10/29/20 12:00 Intake & Output 10/28/20 10/29/20 10/30/20 06:59 06:59 06:59 Intake Total 800 Output Total 650 Balance 150 Weight 93.9 kg General appearance: PRESENT: no acute distress, cooperative Head exam: PRESENT: atraumatic, normocephalic Eye exam: PRESENT: EOMI, PERRLA Mouth exam: PRESENT: moist Neck exam: PRESENT: full ROM Respiratory exam: PRESENT: clear to auscultation dayday, symmetrical, unlabored Cardiovascular exam: PRESENT: RRR, +S1, +S2 Pulses: PRESENT: +2 pedal pulses bilateral GI/Abdominal exam: PRESENT: normal bowel sounds, soft. ABSENT: rebound, tenderness Extremities exam: PRESENT: full ROM Musculoskeletal exam: PRESENT: full ROM Neurological exam: PRESENT: alert, awake, oriented to person, oriented to place, oriented to time, oriented to situation Psychiatric exam: PRESENT: normal mood Skin exam: PRESENT: normal color Results Laboratory Results: 10/29/20 05:53 10/29/20 05:53 10/28/20 10/28/20 10/29/20 15:37 15:37 05:53 WBC 6.3 5.5 RBC 4.97 4.76 Hgb 13.8 13.1 L Hct 40.5 38.6 MCV 82 81 MCH 27.7 27.6 MCHC 34.0 34.0 RDW 13.3 13.6 Plt Count 313 299 Seg Neutrophils % 39.2 L 37.2 L Sodium 136.1 L Potassium 4.2 Chloride 101 Carbon Dioxide 26 Anion Gap 9 BUN 14 Creatinine 1.03 Est GFR ( Amer) > 60 Glucose 185 H Calcium 9.7 Total Bilirubin 0.8 AST 27 Alkaline Phosphatase 123 Total Protein 7.3 Albumin 4.1 Triglycerides Cholesterol LDL Cholesterol Direct VLDL Cholesterol HDL Cholesterol 10/29/20 05:53 WBC RBC Hgb Hct MCV MCH MCHC RDW Plt Count Seg Neutrophils % Sodium 136.1 L Potassium 4.3 Chloride 104 Carbon Dioxide 27 Anion Gap 5 BUN 13 Creatinine 1.05 Est GFR ( Amer) > 60 Glucose 167 H Calcium 9.2 Total Bilirubin 0.7 AST 23 Alkaline Phosphatase 109 Total Protein 6.6 Albumin 3.5 Triglycerides 163 H Cholesterol 205.53 H LDL Cholesterol Direct 156 H VLDL Cholesterol 32.6 H HDL Cholesterol 37 L 10/28/20 10/28/20 10/28/20 15:37 15:37 18:00 Creatine Kinase 629 H CK-MB (CK-2) 3.49 Troponin I 0.014 < 0.012 10/29/20 10/29/20 00:33 05:53 Creatine Kinase CK-MB (CK-2) Troponin I < 0.012 < 0.012 Impressions: Cervical Spine CT 10/28/20 00:00 IMPRESSION: Mild spondylosis. No acute or suspicious cervical spine abnormality. Chest X-Ray 10/28/20 14:40 IMPRESSION: NO ACUTE RADIOGRAPHIC FINDING IN THE CHEST. Head CT 10/28/20 14:40 IMPRESSION: NO ACUTE INTRACRANIAL IMAGING FINDINGS. EVIDENCE OF ACUTE STROKE: NO. Head MRI 10/29/20 00:00 IMPRESSION: 1. Recent left lacunar infarct in the posterior limb of internal capsule. No acute territorial infarct. Mild small vessel disease otherwise as above. EVIDENCE OF ACUTE STROKE: NO. Assessment and Plan - Diagnosis (1) TIA (transient ischemic attack) Is this a current diagnosis for this admission?: Yes Plan: - Came in due to right, arm weakness, slurred speech and unsteady gait - Symptom started 10 pm last night therefor he is out of the tPA window - NIHS 3 so this excludes him from tPA too - hx of previous stroke affected left side of his body no residual deficit - +ve mild dysarthria, +ve romberg but strength is otherwise intact - CT head negative - MRI recent left lacunar infarct in the posterior limb of internal capsule. No acute territorial infarct. Mild small vessel disease. - EKG sinus rhythm - BG normal - Stroke order set used - started on aspirin and high dose lipitor - tele monitor - echo w/ bubble and carotid artery US - would do Permissive Hypertension 24-48 hr and not treat his BP unless sy stolic is >220. If anti HTN is needed please avoid using hydralazine and clonidine - speech, PT/OT eval. HE will likely need acute rehab (2) HTN (hypertension) Qualifiers: Hypertension type: essential hypertension Qualified Code(s): I10 - Essential (primary) hypertension Is this a current diagnosis for this admission?: Yes Plan: - BP 166/102 - permissive HTN for 24-48 hours. Would not treat unless systolic BP >220 - will resume lisinopril once out of this period (3) HLD (hyperlipidemia) Qualifiers: Hyperlipidemia type: unspecified Qualified Code(s): E78.5 - Hyperlipidemia, unspecified Is this a current diagnosis for this admission?: Yes Plan: - will chekc lipid panel - started on high dose statin (4) Type 2 diabetes mellitus Qualifiers: Diabetes mellitus intermediate school teacher insulin use: without intermediate school teacher use Is this a current diagnosis for this admission?: Yes Plan: - On metformin and glimeperide - will hold oral DM meds - [facility] - [facility] - hypoglycemia protocol - A1c 7.8 on metformin and glimeperide. He would need an additional oral hypo glycemic agent. (5) Hx of stroke without residual deficits Is this a current diagnosis for this admission?: Yes Plan: - CVA infarct lst year 2018 affecting Left side of his body - no residual deficit - Time Time Spent with patient: 25-34 minutes Smoking Cessation Education: 3 to 10 minutes Medications reviewed and adjusted accordingly: Yes Anticipated Discharge Disposition: Long Term Facility Anticipated Discharge Timeframe: within 48 hours
[2020-10-29] MEDS: ACETAMINOPHEN 325 MG TABLET PO PRN (22:38)
[2020-10-29] MEDS: ATORVASTATIN CALCIUM 80 MG TABLET PO SCH (22:39)
[2020-10-30] MEDS: INSULIN LISPRO 100 UNIT/ML 3 ML VIAL SUBCUT SCH ×4 (08:14→22:30)
[2020-10-30] MEDS: ASPIRIN 81 MG TABLET, ENT COATED PO SCH (09:19)
[2020-10-30] MEDS: ENOXAPARIN SODIUM INJ 40 MG/0.4 ML DISP.SYRIN SUBCUT SCH (09:19)
[2020-10-30] MEDS: ACETAMINOPHEN 325 MG TABLET PO PRN (11:53)
--- NOTE | 2020-10-30 15:17 | PDOC PROGRESS REPORT ---
Subjective Date:: 10/30/20 Subjective:: RAYA MCKINNON is a 60 year old male, past medical history of prior stroke l ast year affecting the left side of his body no residual weakness, hypertension, hyperlipidemia, type 2 diabetes, who came in the ED today due to right arm weakness and slurring of speech. His symptoms started last night at around 10 PM when he experience pain on the back of his head that radiated to both arms. When he woke up this morning he said he felt terrible and unsteady on his legs specifically the right side. While he was driving today he noticed that his right arm jerked suddenly and that he was slurring his speech. Patient then decided to come to the ED. According to the patient he has not had any of his medication for 2 days. He also stated that he living in his car since June. In the ED blood pressure was 154/92,, heart rate of 85, respiratory rate 16, afebrile, O2 sat of 95% on room air. BC was normal, CMP was normal. CT head negative. NIH stroke scale was 3.Hospitalist service was called to admit the patient for TIA work up. D2 of hospital stay 10/29/20 Patient was seen and examined at bedside. He does not report any new neurologic deficit and reports no worsening of the previously noted deficits. MRI brain showed recent left lacunar infarct in the posterior limb of internal capsule. No acute territorial infarct. Mild small vessel disease otherwise. Still waiting for echo and carotid artery US. PT assessed him. He will likely need acute rehab. He also expressed that "I don't want to be here anymore". I assumed he wanted to sign out AMA but then he said " I don't want to be on this earth anymore". He denied any concrete plan of suicide and he has not attempted before. He later took it back and said he was just frustrated that he had another stroke and that no one from his family have visited him. He looked more frustrated than depressed in my assessment. D3 Hospital stay 10/30/20. Patient was seen and examined at bedside. HE denies any new complains, still unsteady from his right leg. Discussed MRI result with him. Still waiting on disposition since he is homeless and would likely need rehab. No concern per nursing Reason For Visit: TRANSIENT ISCHEMIC INFARCT Physical Exam Vital Signs: Temp Pulse Resp BP Pulse Ox 98.0 F 79 18 121/82 100 10/30/20 11:24 10/30/20 14:00 10/30/20 12:00 10/30/20 12:00 10/30/20 12:00 Intake & Output 10/29/20 10/30/20 10/31/20 06:59 06:59 06:59 Intake Total 800 1571 360 Output Total 650 2800 175 Balance 150 -1229 185 Weight 93.9 kg 91.8 kg General appearance: PRESENT: no acute distress, cooperative Head exam: PRESENT: atraumatic, normocephalic Eye exam: PRESENT: EOMI, PERRLA Mouth exam: PRESENT: moist Neck exam: PRESENT: full ROM Respiratory exam: PRESENT: clear to auscultation dayday, symmetrical, unlabored Cardiovascular exam: PRESENT: RRR, +S1, +S2 Pulses: PRESENT: +2 pedal pulses bilateral GI/Abdominal exam: PRESENT: normal bowel sounds, soft. ABSENT: rebound, tenderness Musculoskeletal exam: PRESENT: normal inspection, other - right leg weakness Neurological exam: PRESENT: alert, awake, oriented to person, oriented to time, oriented to situation, abnormal gait, motor sensory deficit Psychiatric exam: PRESENT: agitated, normal mood Skin exam: PRESENT: normal color Results Laboratory Results: 10/29/20 05:53 10/29/20 05:53 10/28/20 10/28/20 10/28/20 15:37 15:37 18:00 Creatine Kinase 629 H CK-MB (CK-2) 3.49 Troponin I 0.014 < 0.012 10/29/20 10/29/20 00:33 05:53 Creatine Kinase CK-MB (CK-2) Troponin I < 0.012 < 0.012 Impressions: Cervical Spine CT 10/28/20 00:00 IMPRESSION: Mild spondylosis. No acute or suspicious cervical spine abnormality. Chest X-Ray 10/28/20 14:40 IMPRESSION: NO ACUTE RADIOGRAPHIC FINDING IN THE CHEST. Head CT 10/28/20 14:40 IMPRESSION: NO ACUTE INTRACRANIAL IMAGING FINDINGS. EVIDENCE OF ACUTE STROKE: NO. Head MRI 10/29/20 00:00 IMPRESSION: 1. Recent left lacunar infarct in the posterior limb of internal capsule. No acute territorial infarct. Mild small vessel disease otherwise as above. EVIDENCE OF ACUTE STROKE: NO. Assessment and Plan - Diagnosis (1) TIA (transient ischemic attack) Is this a current diagnosis for this admission?: Yes Plan: - Came in due to right, arm weakness, slurred speech and unsteady gait - Symptom started 10 pm last night therefor he is out of the tPA window - NIHS 3 so this excludes him from tPA too - hx of previous stroke affected left side of his body no residual deficit - +ve mild dysarthria, +ve romberg but strength is otherwise intact - CT head negative - MRI recent left lacunar infarct in the posterior limb of internal capsule. No acute territorial infarct. Mild small vessel disease. - EKG sinus rhythm - BG normal - Stroke order set used - started on aspirin and high dose lipitor - echo w/ bubble and carotid artery US -done with permissive HTN, I have resumed his lisinopril goal BP <130/80 - speech, PT/OT eval. HE will likely need acute rehab - tele monitor (2) HTN (hypertension) Qualifiers: Hypertension type: essential hypertension Qualified Code(s): I10 - Essential (primary) hypertension Is this a current diagnosis for this admission?: Yes Plan: - BP 166/102 on admission - Current BP 120/82 - He is done with permissive HTN period and I have resumed his lisinopril goal BP <130/80 (3) HLD (hyperlipidemia) Qualifiers: Hyperlipidemia type: unspecified Qualified Code(s): E78.5 - Hyperlipidemia, unspecified Is this a current diagnosis for this admission?: Yes Plan: - [facility] - started on high dose statin (4) Type 2 diabetes mellitus Qualifiers: Diabetes mellitus alf insulin use: without alf use Is this a current diagnosis for this admission?: Yes Plan: - On metformin and glimeperide - will hold oral DM meds - [facility] - hypoglycemia protocol - A1c 7.8 on metformin and glimeperide. He would need an additional oral hypoglycemic agent. (5) Hx of stroke without residual deficits Is this a current diagnosis for this admission?: Yes Plan: - CVA infarct lst year 2019 affecting Left side of his body - no residual deficit (6) Homelessness Is this a current diagnosis for this admission?: Yes Plan: - Discharge planning on board - Time Time Spent with patient: 25-34 minutes Medications reviewed and adjusted accordingly: Yes Anticipated Discharge Disposition: TBD Anticipated Discharge Timeframe: TBD
--- NOTE | 2020-10-30 19:19 | RADIOLOGY REPORT (SQ) ---
EXAM DESCRIPTION: CAROTID DOPPLER IMAGES COMPLETED DATE/TIME: 10/30/2020 4:50 pm REASON FOR STUDY: TIA COMPARISON: None. TECHNIQUE: Grayscale ultrasound, Doppler velocity and spectra, and color Doppler images acquired of the extra-cranial carotid and vertebral arteries. Images stored on PACS. LIMITATIONS: None. FINDINGS: RIGHT CAROTID CCA Velocities: Within normal limits. ICA Velocities Peak systolic 75 cm/s. End diastolic 27 cm/s. Proximal ICA/CCA peak systolic ratio 0.9. Small amount of soft plaque in the bulb and proximal ICA. LEFT CAROTID CCA Velocities: Within normal limits. ICA Velocities Peak systolic 59 cm/s. End diastolic 33 cm/s. Proximal ICA/CCA peak systolic ratio 0.8. Small amount soft plaque in the bulb and proximal ICA. VERTEBRAL ARTERIES: Antegrade flow. Normal waveforms. SUBCLAVIAN ARTERIES: No finding. OTHER: No other significant finding. IMPRESSION: NO HEMODYNAMICALLY SIGNIFICANT STENOSIS. COMMENT: Quality ID #[id number]: Velocity criteria are extrapolated from the diameter data as defined by t he Society of Radiologists in Ultrasound Consensus Conference. Radiology 2003: 229; 340-346. TECHNICAL DOCUMENTATION: JOB ID: [id number] [employer]- All Rights Reserved Reading location - IP/workstation name: [email or web address]
[2020-10-30] MEDS: ATORVASTATIN CALCIUM 80 MG TABLET PO SCH (22:30)
--- NOTE | 2020-10-30 22:51 | XCELERA REPORT ---
[address] [address] Transthoracic Echocardiogram Report Name: RAYA MCKINNON Age: 60 yrs Gender: Male : 1960 Patient Status: Inpatient Patient Location: [address] [place], [place] [address] Study Date: 10/30/2020 02:39 PM Height: 68 in Weight: 207 lb BSA: 2.1 m2 Procedure: A two-dimensional transthoracic echocardiogram with color flow and Doppler was performed. :with bubble study. Study Quality: Good. Reason For Study: TIA. Please do bubble study History: TIA. Ordering Physician: LEXX MITCHELL Performed By: Eboni Denis Interpretation Summary There is no obvious cardiac source of embolus noted on this transthoracic echocardiogram. Follow-up with a ALEXANDRO is suggested if cardiac source is still suspected. :with bubble study The left ventricle is normal in size. There is normal left ventricular wall thickness. Left ventricular systolic function is normal. LV EF is 60% Doppler measurements suggest impaired left ventricular relaxation, which is associated with grade I/IV or mild diastolic dysfunction The left ventricular wall motion is normal. There is no thrombus. There is no ventricular septal defect visualized. The right ventricle is normal in size and function. The right atrium is normal. The left atrial size is normal. The interatrial septum is intact with no evidence for an atrial septal defect. No doppler or saline contrast (Bubble) evidence of ASD ,PFP or intracardiac shunt. There is no evidence of mitral valve prolapse. There is no vegetation seen on the mitral valve. There is no mitral valve stenosis. There is no mitral regurgitation noted. There is no aortic valvular vegetation. There is no aortic valve stenosis There is no LVOT obstruction. No aortic regurgitation is present. There is no tricuspid stenosis. There is a trace amount of tricuspid regurgitation Tricuspid regurgitation jet envelope not well defined to measure RV systolic pressure accurately. There is no pulmonic valvular stenosis. There is a trace amount of pulmonic regurgitation The aortic root is normal size. The inferior vena cava appeared normal and decreased > 50% with respiration (RAP 5-10 mmHg) No pericadial efffffusion. There is no obvious cardiac source of embolus noted on this transthoracic echocardiogram. Follow-up with a ALEXANDRO is suggested if cardiac source is still suspected MMode/2D Measurements & Calculations RVDd: 2.3 cm LVIDd: 5.0 cm FS: 29.0 % Ao root diam: 3.0 cm IVSd: 1.1 cm LVIDs: 3.6 cm EDV(Teich): LVPWd: 0.97 cm 118.7 ml Ao root area: ESV(Teich): 52.8 ml6.9 cm2 EF(Teich): 55.5 % EDV(MOD-sp4): SV(MOD-sp4): 92.9 ml 41.3 ml ESV(MOD-sp4): 51.7 ml EF(MOD-sp4): 44.4 % Doppler Measurements & Calculations MV E max mynor: MV dec slope: Ao V2 max: LV V1 max P.6 cm/sec 126.3 cm/sec 2.7 mmHg MV A max mynor: 223.1 cm/sec2 Ao max PG: LV V1 mean P.3 cm/sec MV dec time: 0.24 sec6.4 mmHg 1.3 mmHg MV E/A: 0.87 Ao V2 mean: LV V1 max: 92.2 cm/sec 81.5 cm/sec Ao mean PG: LV V1 mean: 3.6 mmHg 52.6 cm/sec Ao V2 VTI: 23.5 cm LV V1 VTI: 14.2 cm PA V2 max: 47.4 cm/sec PA max P.90 mmHg Left Ventricle The left ventricle is normal in size. There is normal left ventricular wall thickness. Left ventricular systolic function is normal. LV EF is 60%. Doppler measurements suggest impaired left ventricular relaxation, which is associated with grade I/IV or mild diastolic dysfunction. The left ventricular wall motion is normal. There is no thrombus. There is no ventricular septal defect visualized. Right Ventricle The right ventricle is normal in size and function. Atria The right atrium is normal. The left atrial size is normal. The interatrial septum is intact with no evidence for an atrial septal defect. No doppler or saline contrast (Bubble) evidence of ASD ,PFP or intracardiac shunt. Mitral Valve There is no evidence of mitral valve prolapse. There is no vegetation seen on the mitral valve. There is no mitral valve stenosis. There is no mitral regurgitation noted. Aortic Valve There is no aortic valvular vegetation. There is no aortic valve stenosis. There is no LVOT obstruction. No aortic regurgitation is present. Tricuspid Valve There is no tricuspid stenosis. There is a trace amount of tricuspid regurgitation. Tricuspid regurgitation jet envelope not well defined to measure RV systolic pressure accurately. Pulmonic Valve There is no pulmonic valvular stenosis. There is a trace amount of pulmonic regurgitation. Great Vessels The aortic root is normal size. The inferior vena cava appeared normal and decreased > 50% with respiration (RAP 5-10 mmHg). Effusions No pericadial efffffusion. : LEXX MITCHELL Lakshmi
[2020-10-31] MEDS: INSULIN LISPRO 100 UNIT/ML 3 ML VIAL SUBCUT SCH ×4 (08:25→21:23)
[2020-10-31] MEDS: ACETAMINOPHEN 325 MG TABLET PO PRN (08:25)
[2020-10-31] MEDS ORDERED: (PENDING PHARMACY ID) (Gabapentin [Neurontin] 600 MG Tablet) PO SCH (10:00)
[2020-10-31] MEDS: ENOXAPARIN SODIUM INJ 40 MG/0.4 ML DISP.SYRIN SUBCUT SCH (10:16)
[2020-10-31] MEDS: LISINOPRIL 10 MG TABLET PO SCH (10:17)
[2020-10-31] MEDS: ASPIRIN 81 MG TABLET, ENT COATED PO SCH (10:17)
[2020-10-31] MEDS: GABAPENTIN 300 MG CAPSULE PO SCH (10:17)
[2020-10-31] MEDS: CLOPIDOGREL BISULFATE 75 MG TABLET PO SCH (16:28)
--- NOTE | 2020-10-31 16:29 | PDOC PROGRESS REPORT ---
Subjective Date:: 10/31/20 Subjective:: Still c/o right sided weakness and still some aphasia. Trying to figure out his discharge situation. His daughters are not arriving till Friday. Reason For Visit: TRANSIENT ISCHEMIC INFARCT Physical Exam Vital Signs: Temp Pulse Resp BP Pulse Ox 98.2 F 79 18 136/75 H 99 10/31/20 12:08 10/31/20 15:48 10/31/20 15:48 10/31/20 15:48 10/31/20 15:48 Intake & Output 10/30/20 10/31/20 11/01/20 06:59 06:59 06:59 Intake Total 1571 720 510 Output Total 2800 1550 Balance -1229 -830 510 Weight 91.8 kg 92.2 kg General appearance: PRESENT: no acute distress, cooperative Eye exam: PRESENT: EOMI, PERRLA Neck exam: ABSENT: JVD Respiratory exam: PRESENT: clear to auscultation dayday, symmetrical, unlabored. ABSENT: accessory muscle use, tachypnea, wheezes Cardiovascular exam: PRESENT: RRR, +S1, +S2. ABSENT: diastolic murmur, systolic murmur, tachycardia GI/Abdominal exam: PRESENT: soft. ABSENT: rebound, rigid, tenderness Neurological exam: PRESENT: alert, awake, oriented to person, oriented to place, oriented to time, oriented to situation, motor sensory deficit - RUE and RLE weakness., aphasic - mild expressive aphasia Psychiatric exam: ABSENT: agitated, anxious Results Laboratory Results: 10/29/20 05:53 10/29/20 05:53 10/28/20 10/28/20 10/28/20 15:37 15:37 18:00 Creatine Kinase 629 H CK-MB (CK-2) 3.49 Troponin I 0.014 < 0.012 10/29/20 10/29/20 00:33 05:53 Creatine Kinase CK-MB (CK-2) Troponin I < 0.012 < 0.012 Impressions: Cervical Spine CT 10/28/20 00:00 IMPRESSION: Mild spondylosis. No acute or suspicious cervical spine abnormality. Chest X-Ray 10/28/20 14:40 IMPRESSION: NO ACUTE RADIOGRAPHIC FINDING IN THE CHEST. Head CT 10/28/20 14:40 IMPRESSION: NO ACUTE INTRACRANIAL IMAGING FINDINGS. EVIDENCE OF ACUTE STROKE: NO. Head MRI 10/29/20 00:00 IMPRESSION: 1. Recent left lacunar infarct in the posterior limb of internal capsule. No acute territorial infarct. Mild small vessel disease otherwise as above. EVIDENCE OF ACUTE STROKE: NO. Carotid Doppler Study 10/30/20 00:00 IMPRESSION: NO HEMODYNAMICALLY SIGNIFICANT STENOSIS. Assessment and Plan - Diagnosis (1) Acute CVA (cerebrovascular accident) Is this a current diagnosis for this admission?: Yes (2) HTN (hypertension) Qualifiers: Hypertension type: essential hypertension Qualified Code(s): I10 - Essential (primary) hypertension Is this a current diagnosis for this admission?: Yes (3) HLD (hyperlipidemia) Qualifiers: Hyperlipidemia type: unspecified Qualified Code(s): E78.5 - Hyperlipidemia, unspecified Is this a current diagnosis for this admission?: Yes (4) Homelessness Is this a current diagnosis for this admission?: Yes (5) Type 2 diabetes mellitus Qualifiers: Diabetes mellitus halfway insulin use: without terminal makeup operator use Is this a current diagnosis for this admission?: Yes - Plan Summary Summary: MRI confirmed stroke involving his left cerebrum consistent with his right-sided weakness and expressive aphasia. He did walk with physical therapy and ambulated 20 feet with contact-guard assist using a front wheeled walker. Coordinating with shoe lay out planner to figure out patient's discharge. I did call his daughter Geovanna who states that she is coming in from [place] along with her sister who is coming in from the [facility]. She states they will both be arriving on Friday. In the meantime, we will have to see if he has any friends or acquaintances who will be able to accommodate him until the family arrives Continue aspirin and atorvastatin. Add Plavix for 21 days. He will require ongoing physical, occupational and speech therapy. He has no insurance and this impedes placement for him at SNF. SSI and accuchecks - Time Time Spent with patient: 25-34 minutes Anticipated Discharge Disposition: Home with Home Health Anticipated Discharge Timeframe: unknown
[2020-10-31] MEDS: ATORVASTATIN CALCIUM 80 MG TABLET PO SCH (21:23)
--- NOTE | 2020-10-31 23:15 | CDI QUERY ---
CDI Query CDI Review: We are seeking further clarification of documentation to reflect the severity of illness of your patient. Per Progress Notes: MRI confirmed stroke involving his left cerebrum consistent with his right- sided weakness and expressive aphasia. Based on your medical judgement, can you further clarify in the Progress Notes and the Discharge Summary: Right sided hemiparesis Right sided hemiplegia Right sided weakness without hemiparesis / hemiplegia Unable to determine Other Thank you for your consideration. DIANDRA Pederson RN Clinical [employer]ec[employer] Physician Advisor [email or web address]
[2020-11-01] MEDS: INSULIN LISPRO 100 UNIT/ML 3 ML VIAL SUBCUT SCH ×2 (08:09→12:04)
[2020-11-01] MEDS: ENOXAPARIN SODIUM INJ 40 MG/0.4 ML DISP.SYRIN SUBCUT SCH (10:48)
[2020-11-01] MEDS: GABAPENTIN 300 MG CAPSULE PO SCH (10:48)
[2020-11-01] MEDS: LISINOPRIL 10 MG TABLET PO SCH (10:48)
[2020-11-01] MEDS: CLOPIDOGREL BISULFATE 75 MG TABLET PO SCH (10:48)
[2020-11-01] MEDS: ASPIRIN 81 MG TABLET, ENT COATED PO SCH (10:48)
--- NOTE | 2020-11-01 12:13 | PDOC DISCHARGE SUMMARY ---
Impression - Admit/DC Date/PCP Admission Date/Primary Care Provider: 10/30/20 15:43 DELMER CLEMETNS MD Discharge Date: 11/01/20 - Discharge Diagnosis (1) Acute CVA (cerebrovascular accident) Is this a current diagnosis for this admission?: Yes (2) HTN (hypertension) Is this a current diagnosis for this admission?: Yes (3) HLD (hyperlipidemia) Is this a current diagnosis for this admission?: Yes (4) Homelessness Is this a current diagnosis for this admission?: Yes (5) Type 2 diabetes mellitus Is this a current diagnosis for this admission?: Yes - Additional Information Resuscitation Status: Full Code Discharge Diet: Cardiac, Diabetic Referrals: [facility] [Outside] - 11/15/20 10:00 am (*this is a telehealth appointment...you will be called*) Prescriptions: Aspirin [Ecotrin 81 mg EC Tablet] 81 mg PO DAILY #30 tabec Atorvastatin Calcium [Lipitor 80 mg Tablet] 80 mg PO QHS #30 tablet Metformin HCl 1,000 mg PO DAILY #30 Clopidogrel Bisulfate [Plavix 75 mg Tablet] 75 mg PO DAILY #20 tablet Lisinopril [Prinivil 10 mg Tablet] 10 mg PO DAILY #30 Home Medications: Gabapentin [Neurontin] 600 mg PO DAILY 10/29/20 Aspirin [Ecotrin 81 mg EC Tablet] 81 mg PO DAILY #30 tabec 11/01/20 Atorvastatin Calcium [Lipitor 80 mg Tablet] 80 mg PO QHS #30 tablet 11/01/20 Clopidogrel Bisulfate [Plavix 75 mg Tablet] 75 mg PO DAILY #20 tablet 11/01/20 Lisinopril [Prinivil 10 mg Tablet] 10 mg PO DAILY #30 11/01/20 Metformin HCl 1,000 mg PO DAILY #30 11/01/20 History of Present Illiness History of Present Illness: Adding to admitting provider: RAYA MCKINNON is a 60 year old male, past medical history of prior stroke last year affecting the left side of his body no residual weakness, hypertension, hyperlipidemia, type 2 diabetes, who came in the ED today due to right arm weakness and slurring of speech. His symptoms started last night at a round 10 PM when he experience pain on the back of his head that radiated to both arms. When he woke up this morning he said he felt terrible and unsteady on his legs specifically the right side. While he was driving today he noticed that his right arm jerked suddenly and that he was slurring his speech. Patient then decided to come to the ED. According to the patient he has not had any of his medication for 2 days. He also stated that he living in his car since June. In the ED blood pressure was 154/92,, heart rate of 85, respiratory rate 16, afebrile, O2 sat of 95% on room air. BC was normal, CMP was normal. CT head negative. NIH stroke scale was 3.Hospitalist service was called to admit the patient for TIA work up Hospital Course Hospital Course: MRI confirmed stroke involving his left cerebrum consistent with his right-sided hemiparesis and expressive aphasia. He did walk decently with physical therapy with contact-guard assist using a fr ont wheeled walker. Carotid Doppler showed no hemodynamically significant stenosis. Echocardiogram was unremarkable essentially. Telemetry review showed no evidence of atrial fibrillation/atrial flutter or other arrhythmias. Blood work revealed hyperlipidemia with elevated LDL and fairly controlled diabetes mellitus with hemoglobin A1c just over 7. Secondary stroke prevention, patient is on aspirin lifelong, 21 days of Plavix and atorvastatin. He is also to continue his diabetic medication including his Metformin as well as his antihypertensive lisinopril. He has been given refills Rx for this. I did call his daughter Geovanna who states that she is coming in from [place] along with her sister who is coming in from [place] and will be arriving on Friday after which patient will be moving with them to [place].. In the meantime, patient states that he has reached out to his Aunt who is in town and that she is willing to accommodate him for the time being until his daughter is able to pick him up this weekend. He is recommended to continue physical and occupational rehabilitation as well as speech therapy. Discharge planning also working on case. Physical Exam Vital Signs: Temp Pulse Resp BP Pulse Ox 97.9 F 79 14 126/74 H 96 11/01/20 11:44 11/01/20 11:44 11/01/20 11:44 11/01/20 11:44 11/01/20 11:44 Intake & Output 10/31/20 11/01/20 11/02/20 06:59 06:59 06:59 Intake Total 720 1400 Output Total 1550 1625 Balance -830 -225 Weight 92.2 kg 91.8 kg General appearance: PRESENT: no acute distress, cooperative Neck exam: ABSENT: JVD Respiratory exam: PRESENT: clear to auscultation dayday GI/Abdominal exam: PRESENT: soft. ABSENT: tenderness Neurological exam: PRESENT: alert, awake, oriented to person, oriented to place, oriented to time, oriented to situation, CN II-XII grossly intact - With exception of aphasia., motor sensory deficit - Right-sided weakness and right upper and lower extremity. Left side is spared., aphasic - Mild expressive aphasia Psychiatric exam: ABSENT: agitated, anxious Results Laboratory Results: WBC 5.5 10^3/uL (4.0-10.5) 10/29/20 05:53 RBC 4.76 10^6/uL (4.35-5.55) 10/29/20 05:53 Hgb 13.1 g/dL (13.5-17.0) L 10/29/20 05:53 Hct 38.6 % (37.9-51.0) 10/29/20 05:53 MCV 81 fl (80-97) 10/29/20 05:53 MCH 27.6 pg (27.0-33.4) 10/29/20 05:53 MCHC 34.0 g/dL (32.0-36.0) 10/29/20 05:53 RDW 13.6 % (11.5-14.0) 10/29/20 05:53 Plt Count 299 10^3/uL (150-450) 10/29/20 05:53 Lymph % (Auto) 47.0 % (13-45) H 10/29/20 05:53 Ford % (Auto) 8.3 % (3-13) 10/29/20 05:53 Eos % (Auto) 6.7 % (0-6) H 10/29/20 05:53 Baso % (Auto) 0.8 % (0-2) 10/29/20 05:53 Absolute Neuts (auto) 2.1 10^3/uL (1.7-8.2) 10/29/20 05:53 Absolute Lymphs (auto) 2.6 10^3/uL (0.5-4.7) 10/29/20 05:53 Absolute Monos (auto) 0.5 10^3/uL (0.1-1.4) 10/29/20 05:53 Absolute Eos (auto) 0.4 10^3/uL (0.0-0.6) 10/29/20 05:53 Absolute Basos (auto) 0.0 10^3/uL (0.0-0.2) 10/29/20 05:53 Seg Neutrophils % 37.2 % (42-78) L 10/29/20 05:53 PT 12.9 SEC (11.4-15.4) 10/29/20 05:53 INR 0.95 10/29/20 05:53 APTT 30.6 SEC (23.5-35.8) 10/28/20 15:37 Sodium 136.1 mmol/L (137-145) L 10/29/20 05:53 Potassium 4.3 mmol/L (3.6-5.0) 10/29/20 05:53 Chloride 104 mmol/L (98-107) 10/29/20 05:53 Carbon Dioxide 27 mmol/L (22-30) 10/29/20 05:53 Anion Gap 5 (5-19) 10/29/20 05:53 BUN 13 mg/dL (7-20) 10/29/20 05:53 Creatinine 1.05 mg/dL (0.52-1.25) 10/29/20 05:53 Est GFR ( Amer) > 60 (>60) 10/29/20 05:53 Est GFR (MDRD) Non-Af > 60 (>60) 10/29/20 05:53 Glucose 167 mg/dL (75-110) H 10/29/20 05:53 POC Glucose 181 mg/dL (70-110) H 11/01/20 11:45 Hemoglobin A1c % 7.8 % (4.7-6.0) H 10/29/20 05:53 Calcium 9.2 mg/dL (8.4-10.2) 10/29/20 05:53 Total Bilirubin 0.7 mg/dL (0.2-1.3) 10/29/20 05:53 Direct Bilirubin 0.1 mg/dL (0.0-0.4) 10/29/20 05:53 Neonat Total Bilirubin Not Reportable 10/29/20 05:53 Neonat Direct Bilirubin Not Reportable 10/29/20 05:53 Neonat Indirect Bili Not Reportable 10/29/20 05:53 AST 23 U/L (17-59) 10/29/20 05:53 ALT 20 U/L (<50) 10/29/20 05:53 Alkaline Phosphatase 109 U/L (38-126) 10/29/20 05:53 Creatine Kinase 629 U/L (55-170) H 10/28/20 15:37 CK-MB (CK-2) 3.49 ng/mL (<4.55) 10/28/20 15:37 Troponin I < 0.012 ng/mL 10/29/20 05:53 Total Protein 6.6 g/dL (6.3-8.2) 10/29/20 05:53 Albumin 3.5 g/dL (3.5-5.0) 10/29/20 05:53 Triglycerides 163 mg/dL (<150) H 10/29/20 05:53 Cholesterol 205.53 mg/dL (0-200) H 10/29/20 05:53 LDL Cholesterol Direct 156 mg/dL (<100) H 10/29/20 05:53 VLDL Cholesterol 32.6 mg/dL (10-31) H 10/29/20 05:53 HDL Cholesterol 37 mg/dL (>40) L 10/29/20 05:53 10/28/20 10/28/20 10/29/20 15:37 18:00 00:33 CK-MB (CK-2) 3.49 Troponin I 0.014 < 0.012 < 0.012 10/29/20 05:53 CK-MB (CK-2) Troponin I < 0.012 Impressions: Cervical Spine CT 10/28/20 00:00 IMPRESSION: Mild spondylosis. No acute or suspicious cervical spine abnormality. Chest X-Ray 10/28/20 14:40 IMPRESSION: NO ACUTE RADIOGRAPHIC FINDING IN THE CHEST. Head CT 10/28/20 14:40 IMPRESSION: NO ACUTE INTRACRANIAL IMAGING FINDINGS. EVIDENCE OF ACUTE STROKE: NO. Head MRI 10/29/20 00:00 IMPRESSION: 1. Recent left lacunar infarct in the posterior limb of internal capsule. No acute territorial infarct. Mild small vessel disease otherwise as above. EVIDENCE OF ACUTE STROKE: NO. Carotid Doppler Study 10/30/20 00:00 IMPRESSION: NO HEMODYNAMICALLY SIGNIFICANT STENOSIS. Plan Time Spent: Greater than 30 Minutes Stroke Is this a Stroke Patient?: Yes Stroke Pt being discharged on Anti-thrombolytic therapy?: Yes Stroke Pt being discharged on Anti-coagulation therapy?: No Reason(s) for not prescribing Anti-coagulation therapy:: Not indicated Stroke Pt being discharged on Statins?: Yes Acute Heart Failure Is this a Heart Failure Patient?: No
[2020-11-01 12:23] VITALS: BP 112/51
== END 2020-11-01 14:11 | disposition home or self-care (01) | DRG 65 ==
LOC: ER 14:09 → EH 17:25 → 3S 19:59 → OBSVTOIN 10-30 15:43
PROVIDERS: ADMIT Internal Medicine; ATTEND Internal Medicine
DX: I63.9 Cerebral infarction, unspecified (principal); G81.91 Hemiplegia, unspecified affecting right dominant side; I10 Essential (primary) hypertension; E78.5 Hyperlipidemia, unspecified; E11.9 Type 2 diabetes mellitus without complications; R53.1 Weakness; R29.703 NIHSS score 3; R47.01 Aphasia; I25.10 Atherosclerotic heart disease of native coronary artery without angina pectoris; M54.9 Dorsalgia, unspecified; G89.29 Other chronic pain; F17.210 Nicotine dependence, cigarettes, uncomplicated; Z59.0 Homelessness; Z79.84 Long term (current) use of oral hypoglycemic drugs; Z79.82 Long term (current) use of aspirin; Z79.899 Other long term (current) drug therapy; Z86.73 Personal history of transient ischemic attack (TIA), and cerebral infarction without residual deficits; Z83.3 Family history of diabetes mellitus; Z82.49 Family history of ischemic heart disease and other diseases of the circulatory system
CPT/HCPCS: 36415; 70450; 70551; 71045; 72125; 80053; 80061; 82550; 82553; 82962; 83036; 84484; 85025; 85610; 85730; 93005; 93010; 93306; 93880; 99285; G0378; J1650; J1815; J3490; J7040